=== PATIENT | male | born 1950 | race Caucasian/White ===

== ENCOUNTER → 2019-02-21 | Outpatient (CLI) | payer MEDICARE ==
--- NOTE | 2019-02-21 20:09 | ECHOF ---
Referral Reason:R01.1 Cardiac Murmur MEASUREMENTS -------- HEIGHT: 172.7 cm WEIGHT: 67.1 kg BP: IVSd: 0.7 cm (0.6 - 1.1) LVIDd: 4.2 cm (3.9 - 5.3) LVPWd: 1.1 cm (0.6 - 1.1) IVSs: 1.6 cm LVIDs: 2.4 cm LVPWs: 1.7 cm RVIDd: 2.6 cm (< 3.3) Ao Diam: 3.0 cm (2.0 - 3.7) LA Diam: 2.4 cm (2.7 - 3.8) AV Cusp: 2.1 cm (1.5 - 2.6) EPSS: 0.5 cm MV E Satish: 0.68 m/s MV DecT: 317 ms MV A Satish: 0.74 m/s MV E/A Ratio: 0.92 RAP: 5.00 mmHg RVSP: 24.48 mmHg MV EF SLOPE: 110.22 mm/s (70 - 150) MV EXCURSION: 20.95 mm (> 18.000) FINDINGS -------- Sinus rhythm. This was a technically good study. The left ventricular size is normal. Left ventricular wall thickness is normal. Overall left vent ricular systolic function is normal with, an EF between 55 - 60 %. The right ventricle is normal in size. Normal LA size by volume 22+/-6 ml/m2. The right atrial size is normal. Interatrial and interventricular septum intact. The aortic valve is trileaflet and appears structurally normal. Mild mitral regurgitation is present. There is mild mitral valve prolapse. Mild tricuspid regurgitation present. The right ventricular systolic pressure, as measured by Doppl er, is 24.48mmHg. There is no pulmonic regurgitation present. The aortic root size is normal. Normal inferior vena cava with normal inspiratory collapse consistent with estimated right atrial pre ssure of 5 mmHg. There is no pericardial effusion. CONCLUSIONS -------- 1. Sinus rhythm. 2. This was a technically good study. 3. The left ventricular size is normal. 4. Left ventricular wall thickness is normal. 5. Overall left ventricular systolic function is normal with, an EF between 55 - 60 %. 6. The right ventricle is normal in size. 7. Normal LA size by volume 22+/-6 ml/m2. 8. The right atrial size is normal. 9. Interatrial and interventricular septum intact. 10. The aortic valve is trileaflet and appears structurally normal. 11. Mild mitral regurgitation is present. 12. There is mild mitral valve prolapse. 13. Mild tricuspid regurgitation present. 14. The right ventricular systolic pressure, as measured by Doppler, is 24.48mmHg. 15. There is no pulmonic regurgitation present. 16. The aortic root size is normal. 17. Normal inferior vena cava with normal inspiratory collapse consistent with estimated right atrial pressure of 5 mmHg. 18. There is no pericardial effusion. TELESALES SUPERVISOR: Tori Thornton RDCS
== END | disposition home or self-care (01) ==
LOC: RADECHMAIN 10:59
PROVIDERS: ATTEND Family Medicine
DX: I08.1 Rheumatic disorders of both mitral and tricuspid valves (principal)
CPT/HCPCS: 93306

== ENCOUNTER → 2019-09-05 | Outpatient (CLI) | payer MEDICARE ==
--- NOTE | 2019-09-06 12:01 | ECHOF ---
Referral Reason:I34.0 nonrheumatic mitral (valve) insufficiency MEASUREMENTS -------- HEIGHT: 170.2 cm WEIGHT: 67.1 kg BP: RVIDd: 3.1 cm (< 3.3) IVSd: 1.1 cm (0.6 - 1.1) LVIDd: 4.1 cm (3.9 - 5.3) LVPWd: 1.2 cm (0.6 - 1.1) IVSs: 1.4 cm LVIDs: 3.1 cm LVPWs: 1.4 cm LA Diam: 2.8 cm (2.7 - 3.8) Ao Diam: 2.7 cm (2.0 - 3.7) AV Cusp: 1.6 cm (1.5 - 2.6) LA Diam: 3.0 cm (2.7 - 3.8) MV EXCURSION: 21.150 mm (> 18.000) MV EF SLOPE: 95 mm/s (70 - 150) EPSS: 0.5 cm MV E Satish: 0.53 m/s MV DecT: 140 ms MV A Satish: 0.82 m/s MV E/A Ratio: 0.65 RAP: 5.00 mmHg RVSP: 22.46 mmHg FINDINGS -------- Sinus rhythm. This was a technically good study. LV size, wall thickness and systolic function are normal, with an EF greater than 55%. The left yessy tricular size is normal. Overall left ventricular systolic function is normal with, an EF between 5 5 - 60 %. The diastolic filling pattern is normal for the age of the patient 8.01. The right ventricle is normal in size. The left atrial size is normal. Normal LA size by volume 22+/-6 ml/m2. The right atrial size is normal. The aortic valve is trileaflet, and appears structurally normal. No aortic stenosis or regurgitation. Mild mitral regurgitation is present. There is mild mitral valve prolapse. Mild tricuspid regurgitation present. Right ventricular systolic pressure is normal at < 35 mmHg. There is no evidence of pulmonary hypertension. Trace/mild (physiologic) pulmonic regurgitation. The aortic root size is normal. There is no pericardial effusion. CONCLUSIONS -------- 1. Sinus rhythm. 2. This was a technically good study. 3. LV size, wall thickness and systolic function are normal, with an EF greater than 55%. 4. The left ventricular size is normal. 5. Overall left ventricular systolic function is normal with, an EF between 55 - 60 %. 6. The diastolic filling pattern is normal for the age of the patient 8.01 7. The right ventricle is normal in size. 8. The left atrial size is normal. 9. Normal LA size by volume 22+/-6 ml/m2. 10. The right atrial size is normal. 11. The aortic valve is trileaflet, and appears structurally normal. No aortic stenosis or regurgitat ion. 12. There is mild mitral valve prolapse. 13. Mild tricuspid regurgitation present. 14. Right ventricular systolic pressure is normal at < 35 mmHg. 15. There is no evidence of pulmonary hypertension. 16. Trace/mild (physiologic) pulmonic regurgitation. 17. The aortic root size is normal. 18. There is no pericardial effusion. PROJECT CONSTRUCTION ASSISTANT MANAGER: Yumiko Florian RDCS
== END | disposition home or self-care (01) ==
LOC: RADECHMAIN 14:52
PROVIDERS: ATTEND Family Medicine
DX: I07.1 Rheumatic tricuspid insufficiency (principal); I37.1 Nonrheumatic pulmonary valve insufficiency; I34.1 Nonrheumatic mitral (valve) prolapse
CPT/HCPCS: 93306

== ENCOUNTER → 2020-09-06 | Outpatient (CLI) | payer MEDICARE ==
--- NOTE | 2020-09-06 09:29 | ECHOF ---
Referral Reason:I34.1 nonrheumatic mitral valve prolapse MEASUREMENTS -------- HEIGHT: 172.7 cm WEIGHT: 61.2 kg BP: RVIDd: 2.4 cm (< 3.3) IVSd: 0.8 cm (0.6 - 1.1) LVIDd: 4.5 cm (3.9 - 5.3) LVPWd: 0.9 cm (0.6 - 1.1) IVSs: 1.3 cm LVIDs: 2.3 cm LVPWs: 1.7 cm LAESV Index (A-L): 22.59 ml/m Ao Diam: 3.0 cm (2.0 - 3.7) AV Cusp: 2.0 cm (1.5 - 2.6) LA Diam: 2.0 cm (2.7 - 3.8) MV EXCURSION: 18.221 mm (> 18.000) MV EF SLOPE: 118 mm/s (70 - 150) EPSS: 0.9 cm MV E Satish: 0.59 m/s MV DecT: 305 ms MV A Satish: 0.76 m/s MV E/A Ratio: 0.78 RAP: 5.00 mmHg RVSP: 18.70 mmHg FINDINGS -------- This was a technically good study. The left ventricular size is normal. Left ventricular wall thickness is normal. Overall left vent ricular systolic function is normal with, an EF between 55 - 60 %. The diastolic filling pattern is normal for the age of the patient 9.36. The right ventricle is normal in size. The left atrial size is normal. Normal LA size by volume 22+/-6 ml/m2. The right atrial size is normal. Interatrial and interventricular septum intact. The aortic valve is trileaflet and appears structurally normal. The mitral valve leaflets are mildly thickened. There is trace to mild mitral regurgitation. Ther e is mild mitral valve prolapse. The tricuspid valve appears structurally normal. Mild tricuspid regurgitation present. Right vent ricular systolic pressure is normal at < 35 mmHg. Trace/mild (physiologic) pulmonic regurgitation. The aortic root size is normal. Normal inferior vena cava with normal inspiratory collapse consistent with estimated right atrial pre ssure of 5 mmHg. There is no pericardial effusion. CONCLUSIONS -------- 1. The left ventricular size is normal. 2. Left ventricular wall thickness is normal. 3. Overall left ventricular systolic function is normal with, an EF between 55 - 60 %. 4. The diastolic filling pattern is normal for the age of the patient 9.36 5. The mitral valve leaflets are mildly thickened. 6. There is trace to mild mitral regurgitation. 7. There is mild mitral valve prolapse. 8. Mild tricuspid regurgitation present. 9. Trace/mild (physiologic) pulmonic regurgitation. 10. There is no pericardial effusion. ACLS SPECIALIST: Tori Thornton RDCS
== END | disposition home or self-care (01) ==
LOC: RADECHMAIN 08:13
PROVIDERS: ATTEND Family Medicine
DX: I08.1 Rheumatic disorders of both mitral and tricuspid valves (principal)
CPT/HCPCS: 93306

== ENCOUNTER → 2022-10-13 | Outpatient (CLI) | payer MEDICARE ==
--- NOTE | 2022-10-14 21:05 | MR ---
EXAMINATION TYPE: MR brain and iac wo/w con DATE OF EXAM: 10/13/2022 10:13 AM CLINICAL INDICATION:Male, 72 years old with history of H93.3X9,H93.19,H91.90,R51.9; COMPARISON: None TECHNIQUE: Multi planar, multi sequence imaging was performed through the brain. Specialized thin s equences were obtained through the internal auditory canals. Pre-and post gadolinium sequences were obtained. MR contrast: IV Contrast: 7 cc Gadavist FINDINGS: The ventricular system, and cisterns appear unremarkable. Few foci of high T2 signal intensity are seen within the periventricular white matter. Midline structures show no abnormality. Diffusion-weigh yumiko imaging shows no evidence of restricted diffusion. The susceptibility weighted images do not reve al any evidence for micro-hemorrhage. The internal auditory canal sequences demonstrate no significant irregularity. The 7th cranial nerve s, 8 cranial nerves, and cerebellar pontine angles appear unremarkable. After the administration betty olinium, no abnormal enhancement is seen within the internal auditory canals. The bone marrow signal is within normal limits. Paranasal sinuses and mastoid air cells: Mild scattered paranasal sinus disease. Visualized orbits: Orbital contents are intact. After administration of gadolinium, no abnormal enhancement is seen. IMPRESSION: 1. No evidence of intracranial mass nor acute/subacute CVA. 2. No evidence of internal auditory canal abnormality. 3. Nonspecific white matter changes, likely secondary to small vessel ischemic disease.
== END | disposition home or self-care (01) ==
LOC: RADMRIMAIN 09:10
PROVIDERS: ATTEND Otolaryngology
DX: R90.82 White matter disease, unspecified (principal); H93.3X9 Disorders of unspecified acoustic nerve; H93.19 Tinnitus, unspecified ear; H91.90 Unspecified hearing loss, unspecified ear; R51.9 Headache, unspecified
CPT/HCPCS: 70553; A9585

== ENCOUNTER → 2023-03-04 | Outpatient (CLI) | payer MEDICARE ==
[2023-03-04 15:15] LABS: HCT 38.3 % (39.6-50.0); HGB 12.3 g/dL (13.0-17.0); MCH 32.4 pg (27.0-32.0); MCHC 32.1 g/dL (32.0-37.0); MCV 100.8 fL (80.0-97.0); Mean Platelet Volume 11.1 fL (9.5-12.2); NRBC Per 100 WBC 0 /100 WBCS (0.0-0.0); Platelet Count 319 X 10*3/uL (140-440); RDW 12.7 % (11.5-14.5); WBC 5.61 X 10*3/uL (4.50-10.00)
[2023-03-04 15:50] LABS: African American GFR (CKD) 95.4 (60.0-200.0); Anion Gap 7.8 mmol/L (10.00-18.00); Blood Urea Nitrogen 12.9 mg/dL (9.0-27.0); Carbon Dioxide 31.1 mmol/L (20.0-27.5); Non-African American GFR(CKD) 82.3 (60.0-200.0); Potassium 4.9 mmol/L (3.5-5.5)
== END | disposition home or self-care (01) ==
LOC: LABPAT 11:45
PROVIDERS: ATTEND Internal Medicine Interventional Cardiology
DX: Z01.812 Encounter for preprocedural laboratory examination (principal); I25.10 Atherosclerotic heart disease of native coronary artery without angina pectoris
CPT/HCPCS: 36415; 80051; 82565; 84520; 85027

== ENCOUNTER 2023-03-10 10:48 | Day surgery (SDC) | payer MEDICARE ==
[~2023-03-10 10:48] MED LIST: ALPRAZolam 0.25 MG TAB PO PRN; ALPRAZolam 0.5 MG TAB PO PRN; ASPIRIN 325 MG TAB PO ONE; NITROGLYCERIN SL TABS 0.4 MG TAB SUBLINGUAL PRN; SODIUM CHLORIDE 0.9% 1,000 ML in EMPTY BAG 1 BAG IV SCH
[2023-03-10] MEDS ORDERED: SODIUM CHLORIDE 0.9% 1,000 ML IV ONE (11:06)
[2023-03-10 11:16] VITALS: RESP 16; TEMP 97.2
[2023-03-10] MEDS ORDERED: VERAPAMIL 2.5 MG/ML 2 ML AMP ONE (11:56)
[2023-03-10] MEDS ORDERED: HEPARIN SODIUM 1,000 UN/ML (10ML VL) ONE (11:56)
[2023-03-10] MEDS ORDERED: fentaNYL (PF) 50 MCG/ML 2 ML AMP ONE (12:18)
[2023-03-10] MEDS ORDERED: fentaNYL (PF) 50 MCG/1 ML VIAL IVP ONE (12:31)
[2023-03-10] MEDS ORDERED: LIDOCAINE 1% INJ 10MG/ML (5 ML VIAL-PF) SQ ONE (12:36)
[2023-03-10] MEDS ORDERED: VERAPAMIL SYRINGE (5 MG/10 ML) INTRAARTER ONE (12:38)
[2023-03-10] MEDS: HEPARIN SODIUM 1,000 UN/ML (10ML VL) IV ONE ×2 (12:40→12:46)
[2023-03-10] MEDS ORDERED: NITROGLYCERIN 1000MCG/10ML SYRINGE INTRACORON ONE (12:56)
[2023-03-10] MEDS ORDERED: IOPAMIDOL-370 100ML BTL INJ ONE (12:56)
[2023-03-10] MEDS ORDERED: RX INFO: IV CONTRAST WAS GIVEN 1 EACH MISC MISCELLANE PRN (13:16)
--- NOTE | 2023-03-10 13:29 | P.CARDCATH ---
Date of Procedure: 03/10/23 Description of Procedure: Cardiac Catheterization: This is a 72-year-old male with known history of hyperlipidemia and CAD who has been complaining of progressive dyspnea on exertion. Recommendations were made regarding cardiac catheterization, the risks and the complications were discussed with the patient who is in full understanding and agreement. 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 Using Xylocaine Anesthesia and Seldinger technique, a 6-Kiswahili sheath was introduced in the right radial artery . Subsequently, selective coronary angiography was performed using a 5-Kiswahili 3.5 bend Rafael catheter. Multiple views of the coronary artery including hemiaxial views were obtained. The right Rafael catheter was used to cross the aortic valve and LVEDP was calculated. After removing the catheters, a 6-Kiswahili FL 3.5 guiding catheter was introduced into system and after cannulating the left main, an Omni flow Doppler wire was positioned in the LAD and after normalization IFR was calculated at 0.97. Following that, catheter and sheath were removed. Hemostasis was obtained with deployment of TR band . There was no immediate complication. Patient was returned to room in stable condition. Of note, the patient received a total of 5000 units of intravenous heparin as well as intra-arterial verapamil. Findings: Fluoroscopy: There is calcification involving the proximal LAD Left main: This is a large size vessel, trifurcating into LAD, ramus intermedius and left circumflex, left main has no high-grade stenosis LAD: This is a large size vessel, reaching to the apex, giving rise to a moderately sized diagonal branch. The proximal LAD at the ostium has a 30-40% plaque and the mid LAD has a tubular lesion of 50-60% stenosis. The rest of the vessel has no high-grade stenosis. Left circumflex: This is a nondominant vessel giving rise to moderately sized obtuse marginal branch that has no evidence of high-grade stenosis RCA: This is a dominant vessel large in caliber, bifurcating into PDA and PLV, the mid RCA has a 30-40% plaque, the rest of the vessel has no high-grade stenosis. Ramus intermedius: This is a large-size vessel reaching to the apical lateral wall, it has no evidence of high-grade stenosis. Left Ventriculogram: Not performed Hemodynamics: There was no gradient across the aortic valve, LVEDP was 8-10 mmHg Conclusion: 1. Calcified proximal LAD 2. Moderate disease in the mid LAD with normal IFR consistent with non- hemodynamic significant lesion 3. Mild disease in the mid RCA 4. Normal LVEDP Recommendations: Have recommended to continue medical therapy with the aggressive coronary risks modifications, at this time I see no evidence of significant obstructive disease. The findings and the recommendations were discussed with the patient and the family and they were in full understanding and agreement. Duration of sedation is 25 minutes.
[2023-03-10] MEDS ORDERED: SODIUM CHLORIDE 0.9% 1,000 ML IV SCH (13:30)
[2023-03-10 15:21] VITALS: BP 121/78
[2023-03-10 16:45] VITALS: PULSE 72
[2023-03-11] MEDS ORDERED: ISOSORBIDE MONONITRATE ER 30 MG TAB.ER.24H PO SCH (09:00)
[2023-03-11] MEDS ORDERED: ATORVASTATIN 40 MG TAB PO SCH (09:00)
[2023-03-11] MEDS ORDERED: ASPIRIN 81 MG PO SCH (09:00)
== END 2023-03-10 16:57 | disposition home or self-care (01) ==
LOC: CATHCVL 10:48
PROVIDERS: ATTEND Internal Medicine Interventional Cardiology
DX: I25.10 Atherosclerotic heart disease of native coronary artery without angina pectoris (principal); E78.2 Mixed hyperlipidemia; Z79.82 Long term (current) use of aspirin; Z79.01 Long term (current) use of anticoagulants
CPT/HCPCS: 93458; 99152; 99153; 93799; C1887; C1769 ×3; C1894; J2001; J1644; Q9967; J3010

== ENCOUNTER → 2023-04-07 | Outpatient (CLI) | payer MEDICARE ==
--- NOTE | 2023-04-07 14:52 | MM ---
Reason for Exam: Clinical finding. Baseline mammogram. Indicated Problems: Lump or thickening of the right side (size 15) for 5 Day(s). Prior Study Comparison: Patient's first Mammogram. Tissue Density: There are scattered fibroglandular densities. Findings: Analyzed By CAD. There appears to be flame-shaped subareolar gynecomastia on the right, moderate in degree. However, on the 3-D CT images, somewhat more focal appearance for which ultrasound is recommended. No suspicious microcalcification or other discrete abnormality is seen. Overall Assessment: Incomplete: need additional imaging evaluation, BI-RAD 0 Management: Diagnostic Breast Ultrasound of the right breast. Electronically signed and approved by: Betty Stovall M.D. Radiologist
--- NOTE | 2023-04-07 15:11 | USB ---
Reason for Exam: Clinical finding. Technique: Method: Targeted. Findings: The area of palpable concern of the right breast, the axilla of the right breast and the retroareolar of both breasts were scanned. Targeted ultrasound subareolar and periareolar bilateral breasts. On the right, imaging confirms 2.0 x 1.9 x 0.8 cm focus of subareolar gynecomastia. No abnormality identified on the left. No other solid or cystic lesion. Overall Assessment: Benign, BI-RAD 2 Management: Clinical Management of the right breast. Further clinical management of patient's benign right-sided gynecomastia. Correlate as to potential causes. Results were given to the patient verbally at the time of exam. Electronically signed and approved by: Betty Stovall M.D. Radiologist
== END | disposition home or self-care (01) ==
LOC: RADMAMWWP 14:11
PROVIDERS: ATTEND Family Medicine
DX: N63.41 Unspecified lump in right breast, subareolar (principal); N63.10 Unspecified lump in the right breast, unspecified quadrant
CPT/HCPCS: 77066; 76642; G0279; 77062

== ENCOUNTER 2023-04-08 13:39 | Emergency (ER) | payer MEDICARE ==
[2023-04-08 14:01] VITALS: TEMP 98.6
--- NOTE | 2023-04-08 14:41 | XR ---
EXAMINATION TYPE: XR KUB DATE OF EXAM: 04/08/2023 COMPARISON: None HISTORY: Abdomen pain TECHNIQUE: Upright AP abdomen FINDINGS: Normal colonic bowel gas is present. Nonspecific small bowel loop contains air with air-flu id level left upper quadrant. No differential air-fluid levels are evident. No free air is present. Psoas margins normal cardiomegaly is not evident. Osseous structures are intact. IMPRESSION: 1. Nonspecific bowel gas pattern
[2023-04-08 15:30] LABS: Basophils % (A) 0 %; Eosinophils # (A) 0.1 k/uL (0-0.7); Eosinophils % (A) 1 %; HCT 45.2 % (39.0-53.0); HGB 14.8 gm/dL (13.0-17.5); Lymphocytes # (A) 0.7 k/uL (1.0-4.8); Lymphocytes % (A) 9 %; MCH 32.6 pg (25.0-35.0); MCHC 32.8 g/dL (31.0-37.0); MCV 99.5 fL (80.0-100.0); Mean Platelet Volume 8.3; Monocytes # (A) 0.5 k/uL (0-1.0); Monocytes % (A) 7 %; Neutrophils # (A) 5.9 k/uL (1.3-7.7); Neutrophils % (A) 81 %; Platelet Count 246 k/uL (150-450); RBC 4.54 m/uL (4.30-5.90); RDW 13.5 % (11.5-15.5); WBC 7.2 k/uL (3.8-10.6)
[2023-04-08 15:45] LABS: ALT 62 U/L (4-49); AST 49 U/L (17-59); African American GFR (CKD) >90 (>60 ml/min/1.73 sqM); Albumin 4.2 g/dL (3.5-5.0); Alkaline Phosphatase 374 U/L (38-126); Amylase 53 U/L (30-110); Anion Gap 7 mmol/L; Blood Urea Nitrogen 16 mg/dL (9-20); Calcium 9.5 mg/dL (8.4-10.2); Carbon Dioxide 31 mmol/L (22-30); Chloride 98 mmol/L (98-107); Glucose 146 mg/dL (74-99); Lipase 79 U/L (23-300); Non-African American GFR(CKD) 81 (>60 ml/min/1.73 sqM); Potassium 4.9 mmol/L (3.5-5.1); Sodium 136 mmol/L (137-145); Total Bilirubin 1.4 mg/dL (0.2-1.3); Total Protein 7.9 g/dL (6.3-8.2)
[2023-04-08 16:48] LABS: Appearance,Urine Clear (Clear); Bilirubin,Urine Negative (Negative); Blood,Urine Negative (Negative); Color,Urine Yellow; Glucose,Urine (UA) Negative (Negative); Ketones,Urine Negative (Negative); Leukocyte Esterase,Urine Negative (Negative); Nitrite,Urine Negative (Negative); Protein,Urine Negative (Negative); Urobilinogen,Urine <2.0 mg/dL (<2.0)
--- NOTE | 2023-04-08 17:20 | ED ---
Abdominal Pain HPI - General Chief Complaint: Abdominal Pain Stated Complaint: abd pain, back pain Time Seen by Provider: 04/08/23 16:14 Source: patient, RN notes reviewed, old records reviewed Mode of arrival: ambulatory Limitations: no limitations - History of Present Illness Initial Comments: This is a 72-year-old male to the emergency department for evaluation patient presents today for evaluation of abdominal pain, this pain is severe but is also episodic abdominal pain severe here in the ER. Patient does have persistent current pain here. Patient is also with persistent nausea vomiting and shortness of breath at times MD Complaint: abdominal pain -: days(s) Location: diffuse, periumbilical, epigastric, suprapubic Radiation: epigastric, suprapubic Migration to: epigastric, suprapubic Severity: severe Severity scale (1-10): 8 Quality: cramping, stabbing, aching Consistency: constant Improves With: nothing Worsens With: nothing Associated Symptoms: nausea, vomiting Treatments Prior to Arrival: other (0) - Related Data Home Medications Medication Instructions Recorded Confirmed Aspirin 81 mg PO DAILY 03/06/23 03/10/23 Atorvastatin [Lipitor] 40 mg PO DAILY 03/06/23 03/10/23 Glucosamine HCl/Chondroitin Thomas 1 each PO DAILY 03/06/23 03/10/23 [Glucosamine-Chondroitin Cap] Isosorbide Mononitrate ER [Imdur] 30 mg PO DAILY 03/06/23 03/10/23 Multivitamins, Thera [Multivitamin 1 tab PO DAILY 03/06/23 03/10/23 (formulary)] Previous Rx's Medication Instructions Recorded Na Phos,M-B/Na Phos,Di-Ba [Fleet 1 dose RECTAL ONCE #1 each 04/08/23 Adult] Sennosides-Docusate Sodium 1 tab PO BID #30 tablet 04/08/23 [Senokot-S] Allergies Allergy/AdvReac Type Severity Reaction Status Date / Time No Known Allergies Allergy Verified 03/05/23 16:11 Review of Systems ROS Statement: Those systems with pertinent positive or pertinent negative responses have been documented in the HPI. ROS Other: All systems not noted in ROS Statement are negative. Past Medical History Past Medical History: Hyperlipidemia Past Surgical History: Orthopedic Surgery General Exam Limitations: no limitations General appearance: alert, in no apparent distress Head exam: Present: atraumatic, normocephalic, normal inspection Eye exam: Present: normal appearance, PERRL, EOMI. Absent: scleral icterus, conjunctival injection, periorbital swelling ENT exam: Present: normal exam, mucous membranes moist Neck exam: Present: normal inspection. Absent: tenderness, meningismus, lymphadenopathy Respiratory exam: Present: normal lung sounds bilaterally. Absent: respiratory distress, wheezes, rales, rhonchi, stridor Cardiovascular Exam: Present: regular rate, normal rhythm, normal heart sounds. Absent: systolic murmur, diastolic murmur, rubs, gallop, clicks GI/Abdominal exam: Present: soft, distended, tenderness, guarding, normal bowel sounds. Absent: rebound, rigid Extremities exam: Present: normal inspection, full ROM, normal capillary refill. Absent: tenderness, pedal edema, joint swelling, calf tenderness Back exam: Present: normal inspection Neurological exam: Present: alert, oriented X3, CN II-XII intact Psychiatric exam: Present: normal affect, normal mood Skin exam: Present: warm, dry, intact, normal color. Absent: rash Course Vital Signs 04/08/23 04/08/23 13:57 22:30 Temperature 98.6 F Pulse Rate 79 81 Respiratory 20 15 Rate Blood Pressure 160/92 135/90 O2 Sat by Pulse 86 L 96 Oximetry - Reevaluation(s) Reevaluation #1: 04/08/23 22:55 Medical records reviewed Reevaluation #2: 04/08/23 22:55 Patient still has constipation abdominal pain type symptoms Reevaluation #3: 04/08/23 22:55 Spoke with family and patient regarding findings questions answered Reevaluation #4: 04/08/23 22:55 Was pt. sent in by a medical professional or institution? @ -no Did you speak to anyone other than the patient for history? @ -no Did you review nursing and triage notes? @ -agree Were old charts reviewed? @ -no Differential Diagnosis? @ -prior EKG interpreted by me (3pts min.)? @ -yes X-rays interpreted by me (1pt min.)? @ -yes CT interpreted by me (1pt min.)? @ -yes U/S interpreted by me (1pt. min.)? @ -yes What testing was considered but not performed? (CT, X-rays, U/S, labs)? Why? @ -no What meds were considered but not given? Why? @ -no Did you discuss the management of the patient with other professionals? @ -no Did you reconcile home meds? @ -no Was smoking cessation discussed for >3mins.? @ -no Was critical care preformed (if so, how long)? @ -no Were there social determinants of health that impacted care today? How? (Homelessness, low income, unemployed, alcoholism, drug addiction, transportation, low edu. Level, literacy, decrease access to med. care, nursing home, rehab)? @ -no Was there de-escalation of care discussed even if they declined? (Discuss DNR or withdrawal of care, Hospice)? @ -no What co-morbidities impacted this encounter? (DM, HTN, Smoking, COPD, CAD, C ancer, CVA, Hep., AIDS, mental health diagnosis, sleep apnea, morbid obesity)? @ -none Was patient admitted / discharged? @ -72 male with severe abdominal pain. For a few days now history of consti pation and worsening symptoms abdominal pain and symptoms of constipation given 2 enemas and can be discharged home Discharge @ -no Drug Therapy requiring intensive monitoring for toxicity (Heparin, Nitro, Insulin, Cardizem)? @ -no Were any procedures done? @ -no Diagnosis/symptom? @ -Constipation and abdominal pain Acute, or Chronic, or Acute on Chronic? @ -acute Uncomplicated (without systemic symptoms) or Complicated (systemic symptoms)? @ -uncomplicated Side effects of treatment? @ -no Exacerbation, Progression, or Severe Exacerbation] @ -no Poses a threat to life or bodily function? @ -no Reevaluation #5: 04/08/23 22:55 Differential Abdominal Pain Men: Appendicitis, cholecystitis, diverticulosis, ischemic bowel, pancreatitis, hepa titis, UTI, gastroenteritis, AAA, incarcerated hernia, bowel obstruction, constipation, inflammatory bowel, hepatitis, peptic ulcer disease, splenic infarction, perforated viscus, testicular torsion, this is not meant to be an all-inclusive list Medical Decision Making - Medical Decision Making 72 male with severe abdominal pain. For a few days now history of constipation and worsening symptoms abdominal pain and symptoms of constipation given 2 enemas and can be discharged home - Lab Data Result diagrams: 04/08/23 14:02 06/21/23 14:02 Lab Results 04/08/23 04/08/23 04/08/23 Range/Units 14:02 14:02 14:02 WBC 7.2 (3.8-10.6) k/uL RBC 4.54 (4.30-5.90) m/uL Hgb 14.8 (13.0-17.5) gm/dL Hct 45.2 (39.0-53.0) % MCV 99.5 (80.0-100.0) fL MCH 32.6 (25.0-35.0) pg MCHC 32.8 (31.0-37.0) g/dL RDW 13.5 (11.5-15.5) % Plt Count 246 (150-450) k/uL MPV 8.3 Neutrophils % 81 % Lymphocytes % 9 % Monocytes % 7 % Eosinophils % 1 % Basophils % 0 % Neutrophils # 5.9 (1.3-7.7) k/uL Lymphocytes # 0.7 L (1.0-4.8) k/uL Monocytes # 0.5 (0-1.0) k/uL Eosinophils # 0.1 (0-0.7) k/uL Basophils # 0.0 (0-0.2) k/uL Sodium 136 L (137-145) mmol/L Potassium 4.9 (3.5-5.1) mmol/L Chloride 98 (98-107) mmol/L Carbon Dioxide 31 H (22-30) mmol/L Anion Gap 7 mmol/L BUN 16 (9-20) mg/dL Creatinine 0.95 (0.66-1.25) mg/dL Est GFR (CKD-EPI)AfAm >90 (>60 ml/min/1.73 sqM) Est GFR (CKD-EPI)NonAf 81 (>60 ml/min/1.73 sqM) Glucose 146 H (74-99) mg/dL Calcium 9.5 (8.4-10.2) mg/dL Total Bilirubin 1.4 H (0.2-1.3) mg/dL AST 49 (17-59) U/L ALT 62 H (4-49) U/L Alkaline Phosphatase 374 H (38-126) U/L Troponin I (0.000-0.034) ng/mL Total Protein 7.9 (6.3-8.2) g/dL Albumin 4.2 (3.5-5.0) g/dL Amylase 53 (30-110) U/L Lipase 79 (23-300) U/L Urine Color Yellow Urine Appearance Clear (Clear) Urine pH 6.0 (5.0-8.0) Ur Specific [place] 1.010 (1.001-1.035) Urine Protein Negative (Negative) Urine Glucose (UA) Negative (Negative) Urine Ketones Negative (Negative) Urine Blood Negative (Negative) Urine Nitrite Negative (Negative) Urine Bilirubin Negative (Negative) Urine Urobilinogen <2.0 (<2.0) mg/dL Ur Leukocyte Esterase Negative (Negative) 04/08/23 Range/Units 14:02 WBC (3.8-10.6) k/uL RBC (4.30-5.90) m/uL Hgb (13.0-17.5) gm/dL Hct (39.0-53.0) % MCV (80.0-100.0) fL MCH (25.0-35.0) pg MCHC (31.0-37.0) g/dL RDW (11.5-15.5) % Plt Count (150-450) k/uL MPV Neutrophils % % Lymphocytes % % Monocytes % % Eosinophils % % Basophils % % Neutrophils # (1.3-7.7) k/uL Lymphocytes # (1.0-4.8) k/uL Monocytes # (0-1.0) k/uL Eosinophils # (0-0.7) k/uL Basophils # (0-0.2) k/uL Sodium (137-145) mmol/L Potassium (3.5-5.1) mmol/L Chloride (98-107) mmol/L Carbon Dioxide (22-30) mmol/L Anion Gap mmol/L BUN (9-20) mg/dL Creatinine (0.66-1.25) mg/dL Est GFR (CKD-EPI)AfAm (>60 ml/min/1.73 sqM) Est GFR (CKD-EPI)NonAf (>60 ml/min/1.73 sqM) Glucose (74-99) mg/dL Calcium (8.4-10.2) mg/dL Total Bilirubin (0.2-1.3) mg/dL AST (17-59) U/L ALT (4-49) U/L Alkaline Phosphatase (38-126) U/L Troponin I <0.012 (0.000-0.034) ng/mL Total Protein (6.3-8.2) g/dL Albumin (3.5-5.0) g/dL Amylase (30-110) U/L Lipase (23-300) U/L Urine Color Urine Appearance (Clear) Urine pH (5.0-8.0) Ur Specific [place] (1.001-1.035) Urine Protein (Negative) Urine Glucose (UA) (Negative) Urine Ketones (Negative) Urine Blood (Negative) Urine Nitrite (Negative) Urine Bilirubin (Negative) Urine Urobilinogen (<2.0) mg/dL Ur Leukocyte Esterase (Negative) - Radiology Data Radiology results: report reviewed (X-ray KUB, ultrasound gallbladder negative for acute disease CT of the abdomen and pelvis positive for constipation), image reviewed Disposition Clinical Impression: Abdominal pain, Constipation Disposition: HOME SELF-CARE Condition: Good Instructions (If sedation given, give patient instructions): Constipation (ED), High Fiber Diet (ED), Abdominal Pain (ED), Fleet Enema (ED) Prescriptions: Na Phos,M-B/Na Phos,Di-Ba [Fleet Adult] 1 dose RECTAL ONCE #1 each Sennosides-Docusate Sodium [Senokot-S] 1 tab PO BID #30 tablet Is patient prescribed a controlled substance at d/c from ED?: No Referrals: Nicola Church DO [Primary Care Provider] - 1-2 days Time of Disposition: 20:40
--- NOTE | 2023-04-08 19:14 | US ---
EXAMINATION TYPE: US gallbladder DATE OF EXAM: 04/08/2023 COMPARISON: NONE CLINICAL INDICATION: Male, 72 years old with history of pain; Abd pain x 1 day TECHNIQUE: Multiple sonographic images of the right upper quadrant are obtained. FINDINGS: EXAM MEASUREMENTS: Liver Length: 11.8 cm Gallbladder Wall: 0.19 cm CBD: 0.31 cm Right Kidney: 9.8 x 4.4 x 4.5 cm Pancreas: Appears wnl Liver: wnl Gallbladder: wnl Evidence for sonographic Penn's sign: No CBD: wnl Right Kidney: wnl IMPRESSION: No evidence for acute process.
--- NOTE | 2023-04-08 19:43 | CT ---
EXAMINATION TYPE: CT abdomen pelvis w con CT DLP: 699.6 mGycm, Automated exposure control for dose reduction was used. DATE OF EXAM: 04/08/2023 7:06 PM COMPARISON: Pet/CT 12/26/2022 CLINICAL INDICATION:Male, 72 years old with history of pain; Generalized abdomen and back pain since yesterday. TECHNIQUE: Axial CT of the abdomen and pelvis. Sagittal and coronal reformats were created on a [employer] workstation. Contrast used:100 ml mL of Isovue 300 with IV Contrast, (none if empty) Oral contrast used: without Oral Contrast (none if empty) FINDINGS: LOWER CHEST: Unremarkable ABDOMEN LIVER: Unremarkable GALLBLADDER AND BILE DUCTS: Unremarkable. PANCREAS: Unremarkable. SPLEEN: Scattered calcified granulomas. ADRENAL GLANDS: Unremarkable. KIDNEYS AND URETERS: No evidence of hydronephrosis or renal calculus. The ureters are unremarkable. PELVIS BLADDER: Unremarkable REPRODUCTIVE: Prostate is enlarged in size measuring 4.8 cm in transverse dimension. ABDOMEN & PELVIS STOMACH AND BOWEL: No evidence of bowel obstruction. There is a large stool burden predominantly in t he cecum and ascending colon and transverse colon present. cecum is dilated up to 10.7 cm. PERITONEUM/RETROPERITONEUM: No evidence of pneumoperitoneum or free fluid. VASCULATURE: No evidence of aortic aneurysm. MUSCULOSKELETAL: No acute osseous abnormalities LYMPH NODES: No gross evidence for lymphadenopathy. SOFT TISSUE/ABDOMINAL WALL: Unremarkable IMPRESSION: 1. Large stool burden throughout the colon particularly the right abdomen. No other acute process vi sualized in the abdomen or pelvis. The cecum is dilated up to 10.7 cm. 2. Prostatomegaly correlate with serum PSA.
[2023-04-08] MEDS ORDERED: SENNOSIDES-DOCUSATE SODIUM 1 EACH TAB PO STA (20:36)
[2023-04-08] MEDS ORDERED: GLYCERIN ADULT SUPPOSITORY 1 EACH RECTAL STA (20:36)
[2023-04-08 22:32] VITALS: BP 135/90; PULSE 81; RESP 15
== END 2023-04-08 22:30 | disposition home or self-care (01) ==
LOC: EC 13:39
DX: K59.00 Constipation, unspecified (principal); R10.13 Epigastric pain; E78.5 Hyperlipidemia, unspecified; Z79.82 Long term (current) use of aspirin; Z79.899 Other long term (current) drug therapy
CPT/HCPCS: 36415; 74018; 74177; 76705; 80053; 81003; 82150; 83690; 84484; 85025; 99284

== ENCOUNTER → 2023-05-21 | Outpatient (CLI) | payer MEDICARE ==
[2023-05-21 15:10] VITALS: BP 117/67; PULSE 73; RESP 18; TEMP 97.9
--- NOTE | 2023-05-21 15:24 | P.GSHP ---
History of Present Illness H&P Date: 05/21/23 Chief Complaint: abnormal right breast ultrasound Eriberto is a 72 year old male seen in consultation for Dr. Church regarding a mass in the right breast. He underwent bilateral breast mammogram on 03/2023. This revealed a flame-shaped subareolar gynecomastia on the right moderate in degree however on the 3-D images somewhat more focal appearance for which ultrasound was recommended was noted. No suspicious microcalcifications were seen. Bilateral breast ultrasound was performed on . On the right imaging confirmed a 2 x 1.9 cm focus of subareolar probable gynecomastia. No abnormality was noted on the left. He has noted the nodularity for about 6 week s. It is more solid and more tender. It seems to have increased in size. He is not complaining of anything on the left side. He is not complaining of any trauma or infection in the breast. Has not had any surgery on the breast. There is no family history of breast cancer. He started taking atorvastatin in January and his cholesterol numbers decreased. caffeine: 2 1/2 cups in am nicotine: none chocolate: occasional Family History: father: prostate cancer brother: prostate cancer mother: Dr. Canela cancer Paternal grandfather: Prostate cancer sister: anal cancer Surgical History: hernia surgery right groin twice knee surgery Medical History: none Social History: Dictating: Negative Alcohol: 2 beers/day drugs: none - Constitutional Constitutional: Denies chills, Denies fever - EENT Comment: lasix surgery Eyes: denies blurred vision, denies pain Ears: bilateral: tinnitus, deny: decreased hearing Ears, nose, mouth and throat: Denies headache, Denies sore throat - Breasts Breasts: bilateral: as per HPI - Cardiovascular Cardiovascular: Denies chest pain, Denies shortness of breath - Respiratory Respiratory: Denies cough, Denies 7 - Gastrointestinal Gastrointestinal: Denies abdominal pain, Denies diarrhea, Denies nausea, Denies vomiting - Genitourinary (Male) Genitourinary: Denies dysuria, Denies hematuria - Musculoskeletal Musculoskeletal: Denies myalgias - Integumentary Integumentary: Denies pruritus, Denies rash - Neurological Neurological: Denies numbness, Denies weakness - Psychiatric Psychiatric: Denies anxiety, Denies depression - Endocrine Endocrine: Denies fatigue, Denies weight change - Hematologic/Lymphatic Comment: none - Allergic/Immunologic Allergic/Immunologic: Reports as per HPI Past Medical History Past Medical History: Hyperlipidemia Past Surgical History: Orthopedic Surgery Medications and Allergies Home Medications Medication Instructions Recorded Confirmed Type Aspirin 81 mg PO DAILY 03/06/23 03/10/23 History Atorvastatin [Lipitor] 40 mg PO DAILY 03/06/23 03/10/23 History Glucosamine HCl/Chondroitin Thomas 1 each PO DAILY 03/06/23 03/10/23 History [Glucosamine-Chondroitin Cap] Isosorbide Mononitrate ER [Imdur] 30 mg PO DAILY 03/06/23 03/10/23 History Multivitamins, Thera [Multivitamin 1 tab PO DAILY 03/06/23 03/10/23 History (formulary)] Na Phos,M-B/Na Phos,Di-Ba [Fleet 1 dose RECTAL ONCE #1 each 04/08/23 Rx Adult] Sennosides-Docusate Sodium 1 tab PO BID #30 tablet 04/08/23 Rx [Senokot-S] Allergies Allergy/AdvReac Type Severity Reaction Status Date / Time No Known Allergies Allergy Verified 03/05/23 16:11 Surgical - Exam - General no distress - Eyes normal ocular movement - Neck trachea midline - Respiratory normal respiratory effort - Cardiovascular Rhythm: regular Heart Sounds: normal: S1, S2 - Abdomen Abdomen: soft, non tender, no guarding, no rigid, no rebound - Genitourinary no testicular masses bilateral - Integumentary normal turgor - Neurologic no disoriented, no combative - Musculoskeletal normal gait, normal posture - Psychiatric oriented to time, oriented to person, oriented to place, speech is normal, memory intact Breast Exam: Inspection: No lumps masses or nodules slight prominence behind the right nipple areolar area Palpation: Right breast: On multi-positional exam approximately 2 cm area of firmness behind the right nipple areolar complex Right axilla: No adenopathy of concern Left breast: Multi-positional exam no dominant masses or nodules of concern Left axilla: No adenopathy of concern Results Mammogram and ultrasound results reviewed and personally viewed Assessment and Plan Assessment: Impression: Mass posterior right nipple areolar complex most likely gynecomastia Changes occurred after initiation of Lipitor believe it may be drug related Plan: ultrasound core biopsy of the right breast consider stopping Lipitor follow up after core biopsy CC: Dr. Church
== END ==
LOC: WWCWWP 14:55
PROVIDERS: ATTEND Surgery
DX: R92.8 Other abnormal and inconclusive findings on diagnostic imaging of breast (principal); N63.0 Unspecified lump in unspecified breast; E78.5 Hyperlipidemia, unspecified

== ENCOUNTER → 2023-06-03 | Day surgery (SDC) | payer MEDICARE ==
--- NOTE | 2023-06-10 10:00 | MM ---
Reason for Exam: Post Procedure Mammogram. Last screening mammogram was performed 2 month(s) ago. Prior Study Comparison: 04/07/2023 Bilateral MG 3D diag mammo w/cad [facility], [facility]. Tissue Density: Right: There are scattered fibroglandular densities. Pathology Description: Location: retroareolar. Marker Left Behind. Needle Type: Mammotome Cores: 4 Skin Nicks: 1 Gauge: 13 The procedure of ultrasound guided core biopsy was explained to the patient. Benefits, alternatives, and risks were discussed. An informed consent was then obtained. A timeout was performed. The patient was placed in supine positioning for imaging and for the procedure. The overlying skin was prepped and draped in usual sterile fashion. Lidocaine was used as anesthetic into the skin and lidocaine with epinephrine subcutaneous tissue up to area of concern in the right breast. A small skin sabiha was made with surgical scalpel. Under ultrasound guidance, a 12-gauge vacuum assisted biopsy gun device was used to obtain 4 core samples. A biopsy clip was left in lesion. Hydromark core T4 marker was placed. The patient tolerated the procedure well without any immediate complication. The patient was kept in the radiology department for short stay after the procedure and then discharged home in stable condition. Postprocedure mammogram: The patient was transferred to mammography for physician ordered post procedure mammogram for clip placement verification. Impression: Successful ultrasound guided core biopsy of area of concern in the right breast, full pathology results to follow. Recommendations: 1. Recommendations are pending pathology results. Pathology Results: Result: Benign, Gynecomastia. RIGHT BREAST POSTERIOR NIPPLE, ULTRASOUND GUIDED NEEDLE CORE BIOPSY: Gynecomastia. Overall Assessment: Benign Assessment: MG 3D diag mammo wo cad RT - Right: Benign, BI-RAD 2. Management: Clinical Management of the right breast. Electronically signed and approved by: Nicola Ruiz D.O. Radiologis
== END ==
LOC: RADUSWWP 07:42
PROVIDERS: ATTEND Surgery
DX: N62 Hypertrophy of breast (principal)
CPT/HCPCS: 88305; 77065; 19083; G0279; A4648; 77061

== ENCOUNTER → 2023-12-07 | Outpatient (CLI) | payer MEDICARE ==
--- NOTE | 2023-12-07 11:10 | USB ---
Reason for Exam: Follow-up at short interval from prior study. Patient History: 06/03/2023, Benign US biopsy breast VAD RT on the right side. Technique: Method: Targeted. Prior Study Comparison: 04/07/2023 Bilateral MG 3D diag mammo w/cad [facility], [facility]. 06/03/2023 Right MG 3D diag mammo wo cad RT, [facility]. Findings: The retroareolar of the right breast was scanned. Targeted subareolar right breast ultrasound redemonstrates mild gynecomastia. An adjacent microclip 9:00 subareolar right breast from biopsy 6 months ago. No other solid or cystic lesions. Overall Assessment: Benign, BI-RAD 2 Management: Clinical Management of the right breast in 1 year. A clinical breast exam by your physician is recommended on an annual basis and results should be correlated with mammographic findings. This exam should not preclude additional follow-up of suspicious palpable abnormalities. Results were given to the patient verbally at the time of exam. Electronically signed and approved by: Betty Stovall M.D. Radiologist
== END | disposition home or self-care (01) ==
LOC: RADUSWWP 10:50
PROVIDERS: ATTEND Surgery
DX: N62 Hypertrophy of breast (principal); R92.8 Other abnormal and inconclusive findings on diagnostic imaging of breast

== ENCOUNTER → 2023-12-10 | Outpatient (CLI) | payer MEDICARE ==
--- NOTE | 2023-12-10 15:18 | P.PN ---
Subjective Progress Note Date: 12/10/23 06/26/23 Principal diagnosis: gynecomastia abnormal right breast ultrasound Eriberto is a 72 year old male seen in consultation for Dr. Church regarding a mass in the right breast. He underwent bilateral breast mammogram on 03/2023. This revealed a flame-shaped subareolar gynecomastia on the right moderate in degree however on the 3-D images somewhat more focal appearance for which ultrasound was recommended was noted. No suspicious microcalcifications were seen. Bilateral breast ultrasound was performed on . On the right imaging confirmed a 2 x 1.9 cm focus of subareolar probable gynecomastia. No abnormality was noted on the left. He has noted the nodularity for about 6 weeks. It is more solid and more tender. It seems to have increased in size. He is not complaining of anything on the left side. He is not complaining of any trauma or infection in the breast. Has not had any surgery on the breast. There is no family history of breast cancer. He started taking atorvastatin in January and his cholesterol numbers decreased. 06-26-23 Patient had ultrasound core biopsy of the right breast on 06-03-23, pathology gynecomastia. This was benign concordant. He tolerated the procedure without difficulty. 11-28-23 The patient does not have any new lumps masses or nodules for which she is concerned. The patient states that he does not have as much tenderness to the right side and the swelling has decreased in size. He decreased the dose of Tod statin from 40 mg to 20 mg. He had a right breast ultrasound performed on 12-07-2023 this revealed mild gynecomastia. The recommendation was a bite this was BI-RADS 2 and clinical management of the right breast in 1 year. caffeine: 2 1/2 cups in am nicotine: none chocolate: occasional Family History: father: prostate cancer brother: prostate cancer mother: Dr. Canela cancer Paternal grandfather: Prostate cancer sister: anal cancer Surgical History: hernia surgery right groin twice knee surgery Medical History: none Social History: Dictating: Negative Alcohol: 2 beers/day drugs: none - Constitutional Constitutional: Denies chills, Denies fever - EENT Comment: lasix surgery Eyes: denies blurred vision, denies pain Ears: bilateral: tinnitus, deny: decreased hearing Ears, nose, mouth and throat: Denies headache, Denies sore throat - Breasts Breasts: bilateral: as per HPI - Cardiovascular Cardiovascular: Denies chest pain, Denies shortness of breath - Respiratory Respiratory: Denies cough - Gastrointestinal Gastrointestinal: Denies abdominal pain, Denies diarrhea, Denies nausea, Denies vomiting - Genitourinary (Male) Genitourinary: Denies dysuria, Denies hematuria - Musculoskeletal Musculoskeletal: Denies myalgias - Integumentary Integumentary: Denies pruritus, Denies rash - Neurological Neurological: Denies numbness, Denies weakness - Psychiatric Psychiatric: Denies anxiety, Denies depression - Endocrine Endocrine: Denies fatigue, Denies weight change - Hematologic/Lymphatic Comment: none - Allergic/Immunologic Allergic/Immunologic: Reports as per HPI Past Medical History Past Medical History: Hyperlipidemia Past Surgical History: Orthopedic Surgery Medications and Allergies Home Medications Medication Instructions Recorded Confirmed Type Aspirin 81 mg PO DAILY 03/06/23 03/10/23 History Atorvastatin [Lipitor] 40 mg PO DAILY 03/06/23 03/10/23 History Glucosamine HCl/Chondroitin Thomas 1 each PO DAILY 03/06/23 03/10/23 History [Glucosamine-Chondroitin Cap] Isosorbide Mononitrate ER [Imdur] 30 mg PO DAILY 03/06/23 03/10/23 History Multivitamins, Thera [Multivitamin 1 tab PO DAILY 03/06/23 03/10/23 History (formulary)] Na Phos,M-B/Na Phos,Di-Ba [Fleet 1 dose RECTAL ONCE #1 each 04/08/23 Rx Adult] Sennosides-Docusate Sodium 1 tab PO BID #30 tablet 04/08/23 Rx [Senokot-S] Allergies Allergy/AdvReac Type Severity Reaction Status Date / Time No Known Allergies Allergy Verified 03/05/23 16:11 Impression: Right breast core biopsy consistent with gynecomastia Plan: Options include Surgical resection which is not recommended at this time Decreasing Lipitor close surveillance Close surveillance with repeat ultrasound in 6 months CC: Dr. Church Additional CC's: Kandi Church Objective - Vital Signs Vital signs: Vital Signs Temp 98.2 F 12/10/23 15:06 Pulse 86 12/10/23 15:06 Resp 15 12/10/23 15:06 BP 127/70 12/10/23 15:06 Pulse Ox 98 12/10/23 15:06 FiO2 Intake & Output 12/09/23 12/10/23 12/10/23 18:59 06:59 18:59 Weight 68.039 kg - Constitutional General appearance: Present: cooperative - EENT Eyes: Present: EOMI ENT: Present: hearing grossly normal - Neck Neck: Present: normal ROM - Respiratory Respiratory: bilateral: CTA - Cardiovascular Heart sounds: normal: S1, S2 - Integumentary Integumentary: Present: normal turgor - Musculoskeletal Musculoskeletal: Present: gait normal - Psychiatric Psychiatric: Present: A&O x's 3, appropriate affect, intact judgment & insight - Additional findings Additional findings: Breast examination: Inspection: No lesions of concern Palpation: Right breast: Multi positional exam mild fullness under the nipple areolar complex consistent with prior gynecomastia it is decreased in size, minimal tenderness Right axilla: No adenopathy of concern Left breast: Multi positional exam no dominant masses or nodules of concern, no gynecomastia of concern Left axilla: No adenopathy of concern Assessment and Plan Assessment: Impression: Right breast core biopsy consistent with gynecomastia right breast ultrasound 12-07-23 BIRAD 2 Plan: Options included Surgical resection which is not recommended at this time Decreasing Lipitor close surveillance Close surveillance with repeat ultrasound in 12 months At this time the patient is doing well he will follow-up in 1 year with a right breast ultrasound he will follow-up sooner any questions or concerns CC: Dr. Church
[2023-12-10 15:26] VITALS: BP 127/70; PULSE 86; RESP 15; TEMP 98.2
== END ==
LOC: WWCWWP 14:49
PROVIDERS: ATTEND Surgery
DX: N62 Hypertrophy of breast (principal); N63.10 Unspecified lump in the right breast, unspecified quadrant; E78.5 Hyperlipidemia, unspecified; Z79.82 Long term (current) use of aspirin

== ENCOUNTER → 2024-09-01 | Outpatient (CLI) | payer MEDICARE ==
[2024-09-01 09:33] LABS: African American GFR (CKD) >90 (>60 ml/min/1.73 sqM); Blood Urea Nitrogen 15 mg/dL (9-20); Non-African American GFR(CKD) 81 (>60 ml/min/1.73 sqM)
--- NOTE | 2024-09-01 10:46 | CT ---
CT chest with contrast HISTORY: Follow-up pulmonary nodules. COMPARISON: Outside CT chest from [facility] dated 12/08/2022. TECHNIQUE: Multiple axial images are obtained through the chest following uneventful menstruation non ionic IV contrast. The focal masslike density in the lingula seen on the prior study has resolved in the interval. The s carlike density in the right middle lobe has decreased in the interval. There a few stable scattered nodules including an 8.4 mm nodule in the middle lobe and a 10 mm nodule in the subpleural parenchyma of the right upper lobe posteriorly. A few additional smaller nodules a re seen which are stable as well. No new or suspicious lung mass or nodule is seen. There is no airspace consolidation. There is no pleural effusion or pneumothorax. The great vessels chest are normal. There is no mediastinal, hilar or axillary adenopathy but there is evidence for prior granulomatous d isease exposure with calcified hilar and mediastinal lymph nodes. Limited scanning through the upper abdomen reveals no gross abnormality. No focal osseous lesions are seen. IMPRESSION: 1. Stable lung nodules as described above. No new or suspicious lung mass or nodule seen. If this is a high-risk patient then follow-up yearly CT thorax is recommended. 2. No acute cardiopulmonary disease. [facility], , 09/01/2024 10:43 AM
== END | disposition home or self-care (01) ==
LOC: RADCTMAIN 08:35
PROVIDERS: ATTEND Internal Medicine Critical Care Medicine
DX: R91.8 Other nonspecific abnormal finding of lung field (principal)
CPT/HCPCS: 82565; 84520; 71260; 36415; Q9967